=== PATIENT | male | born 1990 | race Caucasian/White ===

== ENCOUNTER 2025-06-01 20:19 | Observation (INO) | payer BC ==
[2025-06-01 21:21] VITALS: BMI 28.2
[2025-06-02] MEDS: HYDROcodone/Acetaminophen 5/325 mg Tablet PO PRN (00:58)
[2025-06-02] MEDS ORDERED: PHARMACY TO RENALLY ADJUST ABX FS SCH (07:30)
[2025-06-02] MEDS ORDERED: Ondansetron PF 4 MG/2 ML Vial IVP PRN (07:30)
[2025-06-02 09:17] LABS: #Basophils 0.03 10x3/uL (0.0-0.2); #Eosinophils 0.05 10x3/uL (0.0-0.7); #Monocytes 0.98 10x3/uL (0.11-0.59); #Neutrophils 5.00 10x3/uL (1.40-6.50); %Basophils 0.4 % (0.0-1.0); %Eosinophils 0.6 % (0.0-10.0); %Lymphocytes 25.6 % (21.0-51.0); %Monocytes 12.0 % (0.0-10.0); %Neutrophils 61.2 % (42.0-75.0); Hematocrit 42.3 % (42.0-52.0); Hemoglobin 14.7 g/dL (14.0-18.0); Mean Corpuscular Hemoglobin 32.0 pg (27.0-31.0); Mean Corpuscular Volume 92.0 fL (78.0-98.0); Platelet Count 207 10x3/uL (130-400); Red Blood Cell (RBC) Count 4.60 mill/uL (4.70-6.10); White Blood Cell (WBC) Count 8.17 10x3/uL (4.8-10.8)
[2025-06-02 09:39] LABS: ALT (SGPT) 18 U/L (Less than 45); AST (SGOT) 15 U/L (11-34); Albumin 3.6 g/dL (3.1-4.5); Alkaline Phosphatase 49 U/L (40-110); Anion Gap 11 mmol/L (10-20); BUN (Urea Nitrogen) 14 mg/dL (8.9-20.6); Bilirubin, Total 1.3 mg/dL (0.3-1.2); Calc. Creatinine Clearance 126 mL/min (70-130); Calcium 8.3 mg/dL (7.8-10.44); Carbon Dioxide 23 mmol/L (22-29); Chloride 108 mmol/L (98-107); Globulin 2.5 g/dL (2.4-3.5); Glucose 91 mg/dL (70-105); Potassium 3.7 mmol/L (3.5-5.1); Sodium 138 mmol/L (136-145)
[2025-06-02] MEDS: Aspirin 81 mg Enteric Coated Tablet PO SCH (09:54)
[2025-06-02] MEDS ORDERED: PROPOFOL 40 ML ONE (13:53)
[2025-06-02] MEDS ORDERED: Lidocaine 1% PF 5 ML VIAL ONE (13:53)
[2025-06-02] MEDS ORDERED: fentaNYL PF 100 MCG/2 ML SYRINGE ONE ×2 (13:53→15:51)
[2025-06-02] MEDS ORDERED: CEFAZOLIN 2 GM VIAL ONE (14:03)
[2025-06-02] MEDS ORDERED: Ondansetron PF 4 MG/2 ML Vial ONE (14:23)
[2025-06-02 18:05] VITALS: BP 118/72; TEMP 98.9
== END 2025-06-02 19:37 | disposition home or self-care (01) ==
LOC: INTOOBSV 20:44 → SURG B 20:44
PROVIDERS: ADMIT Orthopaedic Surgery; ATTEND Orthopaedic Surgery
PROC: 0QSK04Z Reposition Left Fibula with Internal Fixation Device, Open Approach (ICD-10-PCS; principal; 2025-06-02)
DX: S82.852A Displaced trimalleolar fracture of left lower leg, initial encounter for closed fracture (principal); F17.200 Nicotine dependence, unspecified, uncomplicated; W17.81XA Fall down embankment (hill), initial encounter
CPT/HCPCS: 36415; 80053; 85025; 96374; C1713; G0378; J0665; J1100; J2250; J2270; J2272; J2405; J2704